=== PATIENT | female | born 1960 | race African-American/Black ===

== ENCOUNTER 2022-12-30 05:58 | Emergency (ER) | payer OTHER, MEDICAID ==
[~2022-12-30] VITALS: Ht 165.1 cm; Wt 81.8 kg
[2022-12-30 06:22] VITALS: O2SAT 100
[2022-12-30] MEDS ORDERED: ACETAMINOPHEN 325MG TABLET PO ONE (08:45)
[2022-12-30] MEDS ORDERED: DIPHENHYDRAMINE 50MG CAPSULE PO ONE (08:45)
[2022-12-30] MEDS ORDERED: TC1U15 TP (08:51)
[2022-12-30] MEDS ORDERED: B50 MT (08:51)
[2022-12-30 09:06] VITALS: BP 129/70; PULSE 88; RESP 18; TEMP 98.7
[2022-12-30] MEDS ORDERED: TRIAMCINOLONE ACETONIDE 0.1 % OINT 15GM TOP SCH (14:00)
== END 2022-12-30 09:09 | disposition home or self-care (01) ==
LOC: ER 05:58
DX: T78.40XA Allergy, unspecified, initial encounter (principal); X58.XXXA Exposure to other specified factors, initial encounter
CPT/HCPCS: 99283; Q0163